=== PATIENT | female | born 2005 | race Caucasian/White ===

== ENCOUNTER 2025-03-12 10:01 | Outpatient (AMB) | payer OTHER, SELFPAY ==
--- NOTE | 2025-03-12 10:09 | A.OFFPC_ITS ---
Vital Signs 03/12/25 10:12 Height 5 ft 3.94 in Weight 121 lb 6 oz BMI 20.9 BP 104/64 Blood Pressure Location Rt brachial Position Sitting Respiration 12 Pulse 71 Pulse Source Pulse Oximeter Temp 98.2 F Temp Source Oral Pulse Oximetry (%) 99 Oxygen Delivery Method Room Air Intake Visit Reasons: New PT Intake Note: New patient visit Bsa/Aml Compliance Officer Required: No Allergies No Known Allergies Allergy (Verified 03/12/25 10:10) Tobacco use date assessed: 03/12/25 Dental Screening Dental Screen Date: 03/12/25 Did you have a dental visit in the last 12 months?: Yes Did you have a dental problem in the last 6 months where you did not have access to dental care?: No Was dental information given to patient?: Patient has dentist HPI HPI Comments History of Present Illness Details The patient is a 19 year old female with a past medical history of peanut allergy presenting to [facility] care/CPE Yawns often, cold intolerance. Sleeps okay. Some fatigue. History of peanut allergy. Has epipen. In [employer] for [employer]. Has always dealt with issues concentrating. Brought up to electric shovel operator at one point -the referral fell through. Not inte rested in medications at this time Menses are normal. Came off ocp a few months ago. Is sexually active. Uses condoms. [facility]. Needs pap Dental UTD Tdap today ROS see HPI PHYSICAL EXAM: GENERAL: Alert and oriented x 3. NAD EYES: EOMI. Anicteric. HENT: Moist mucous membranes. No scleral icterus. No cervical lymphadenopathy. LUNGS: Clear to auscultation bilaterally. CARDIOVASCULAR: Regular rate and rhythm. No murmur. No JVD. ABDOMEN: Soft, non-tender +bs EXTREMITIES: No edema. Non-tender. SKIN: No rashes or lesions. Warm. NEUROLOGIC: No focal neurological deficits. CN II-XII grossly intact PSYCHIATRIC: Cooperative. Appropriate mood and affect [facility] H/O wisdom tooth extraction Family History Other FH: mental illness Social History Housing: House (when in school) Housing Other:: Apartment also when in school Patient Tobacco Use Status: Never used Tobacco e-Cigarette/Vaping Use: Never Used Second Hand Smoke Exposure: No Substance Use Type: Marijuana service: No Current occupational status: student Cognitive needs: No Hearing needs: No Vision needs: No Questionnaire PHQ-9 Over the last 2 weeks, how often have you been bothered by any of the following problems? 1. Little interest or pleasure in doing things: not at all 2. Feeling down, depressed, or hopeless: not at all 3. Trouble falling or staying asleep, or sleeping too much: not at all 4. Feeling tired or having little energy: nearly every day 5. Poor appetite or overeating: not at all 6. Feeling bad about yourself - or that you are a failure or have let yourself or your family down: not at all 7. Trouble concentrating on things, such as reading the newspaper or watching television: more than half the days 8. Moving or speaking so slowly that other people could have noticed. Or the opposite - being so fidgety or restless that you have been moving around a lot more than usual: not at all 9. Thoughts that you would be better off or of hurting yourself in some way: not at all Total score: 5 Depression Screening Interpretation: Positive (referred for ADD evaluation. Labs ordered. Denies depression) Depression Screening Follow-up: Other Depression Screening Done: Yes 08309 - PHQ-9 Billing: Yes Source: Developed by Drs. Allan Medel, Amanda Platt, Soy Lora and colleagues, with an educational beatriz from [employer]. Thrive Questionnaire Date Thrive assessed: 03/12/25 I am a: Patient What is your living situation today?: I have a steady place to live Within the past 12 months, did the food you bought not last and you didn't have the money to get more?: Never true Within the past 12 months, did you worry whether your food would run out before you got money to buy more?: Never true Do you have trouble paying for medicines?: No Do you have trouble getting transportation to medical appointments?: No Do you have trouble paying your heating and electricity bill?: No Do you have trouble taking care of your child, family member or friend?: No Do you have trouble with day-to-day activities such as bathing, preparing meals, shopping, managing finances, etc.?: No Are you currently unemployed and looking for a job?: No Are you interested in more education?: No Please select the resources that you would like help with: None Currently or been in a relationship where the following occur: No concerns reported THRIVE Score: 0 AUDIT C Alcohol Use Questionnaire (AUDIT-C) 1. How often do you have a drink containing alcohol?: 2-4 times a month 2. How many drinks containing alcohol do you have on a typical day when you are drinking?: 1 or 2 3. How often do you have six or more drinks on one occasion?: Never Total Score: 2 DANTE-7 AMB Questionnaire DANTE-7 Date DANTE - 7 assessed: 03/12/25 Feeling nervous, anxious, or on edge: 2 = More than half the days Not being able to stop or control worryin = Not at all Worrying too much about different things: 0 = Not at all Trouble relaxin = Several days Being so restless that it is hard to sit still: 0 = Not at all Becoming easily annoyed or irritable: 1 = Several days Feeling afraid as if something awful might happen: 0 = Not at all Total DANTE-7 score (0-4 normal; 5-9 mild; 10-14 moderate; 15-21 severe): 4 Source: Developed by Drs. Allan Medel, Amanda Platt, Soy Lora and colleagues, with an educational beatriz from [employer]. DANTE-7 Assessment Billing DANTE-7 Assessment Tool: DANTE-7 Assessment 89509 ACT Questionnaire In the past 4 weeks, how much of the time did your asthma keep you from getting as much done at work, school or at home?: None of the time During the past 4 weeks, how often did your asthma symptoms wake you up at night or earlier than usual in the morning?: Not at all During the past 4 weeks, how often have you had to use your rescue inhaler or nebulizer medication?: Not at all How would you rate your asthma control during the past 4 weeks?: Completely controlled ACT Interpretation: Negative Score: 20 Physical exam (Primary Care) Vital Signs: Last Vital Signs Temp 98.2 F 03/12/25 10:12 Pulse 71 03/12/25 10:12 Resp 12 03/12/25 10:12 BP 104/64 03/12/25 10:12 Pulse Ox 99 03/12/25 10:12 Oxygen Delivery Method Room Air 03/12/25 10:12 BMI result Body Mass Index 20.9 Tobacco/Smoking Status: Tobacco use Status Tobacco use date assessed 03/12/25 03/12/25 10:14 Patient Tobacco Use Status Never used Tobacco 03/12/25 10:14 e-Cigarette/Vaping Use Never Used 03/12/25 10:14 Depression Screening Interpretation: Positive (referred for ADD evaluation. Labs ordered. Denies depression) Depression Screening Follow-up: Other Thrive Assessment: Date of Thrive Assessment Date Thrive assessed 03/12/25 03/12/25 10:24 Currently or been in a relationship where the following occur: No concerns reported Office Procedures Flu Questionnaire Does the patient have a severe egg allergy?: No Does the patient have severe life threatening allergies?: No Does the patient have a fever or illness today?: No Has the patient ever had Guillain-[place] Syndrome?: No Has the patient ever had any past reaction to a flu shot?: No Immunizations Fluarix [id number] (PF) 45 mcg (15 mcg x 3)/0.5 mL IM syringe Performing Provider: Sharona Horne MD Performing Location: [facility] Administered by: Shi Chase CMA on 03/12/25 10:50 Dose Route Admin Location Dispensed Lot Number Expiration Date [facility] Lap Cutter Truer Operator 0.5 mL IM Right Deltoid 0.5 mL [id number] 10/26/25 21777-077-90 [facility] Given Date VIS Provided VIS Publication Date 03/12/25 Single Vaccine 24 Eligibility Eligibility Date Funding Source Not C Eligible 03/12/25 Private Boostrix Tdap 2.5 Lf unit-8 mcg-5 Lf/0.5 mL intramuscular syringe Performing Provider: Sharona Horne MD Performing Location: [facility] Administered by: Shi Chase CMA on 03/12/25 10:50 Dose Route Admin Location Dispensed Lot Number Expiration Date [facility] Lap Cutter Truer Operator 0.5 mL IM Left Deltoid 0.5 mL [id number] 03/26/27 96283-514-41 [employer] Total Dispensed Waste 0.5 mL 0 % VIS Given Date VIS Provided VIS Publication Date 03/12/25 Single Vaccine 20 Eligibility Eligibility Date Funding Source Not [facility] Eligible 03/12/25 Private Coding Level of Care Code New Pt Prev Care 18-39yr(76854 Diagnoses Physical exam Z00.00 Fatigue, unspecified type R53.83 Fatigue type: unspecified Cold intolerance R68.89 Attention deficit R41.840 Additional Codes Asthma Control Questionnaire - ACT Interpretation: Negative ([id number]) DANTE-7 Assessment Billing - DANTE-7 Assessment Tool: DANTE-7 Assessment 05669 ([id number]) PHQ-9 - 11450 - PHQ-9 Billing: Yes ([id number]) Assessment & Plan Assessment & Plan (1) Physical exam: Code(s): Z00.00 - Encounter for general adult medical examination without abnormal findings (2) Fatigue: Code(s): R53.83 - Other fatigue Category: Medical Qualifiers: Fatigue type: unspecified Qualified Code(s): R53.83 - Other fatigue (3) Cold intolerance: Code(s): R68.89 - Other general symptoms and signs Category: Medical (4) Attention deficit: Code(s): R41.840 - Attention and concentration deficit Category: Medical Plan 19 year old female presenting for cpe/establish past medical, surgical, social reviewed Preventive measures for age discussed Fatigue, cold intolerance-labs ordered Attention deficit. Referral placed Notes epipen is in date Orders: Orders Complete Blood Count Auto Diff Today R53.83 - Other fatigue, R68.89 - Other general symptoms and signs, Z13.0 - Encounter for screening for diseases of the blood and blood-forming organs and certain disorders involving the immune mechanism, Z13.220 - Encounter for screening for lipoid disorders, Z13.228 - Encounter for screening for other metabolic disorders Lyme IgG/IgM w/reflex to WB Today R53.83 - Other fatigue, R68.89 - Other general symptoms and signs, Z13.0 - Encounter for screening for diseases of the blood and blood-forming organs and certain disorders involving the immune mechanism, Z13.220 - Encounter for screening for lipoid disorders, Z13.228 - Encounter for screening for other metabolic disorders Comprehensive Met. Panel Today R53.83 - Other fatigue, R68.89 - Other general symptoms and signs, Z13.0 - Encounter for screening for diseases of the blood and blood-forming organs and certain disorders involving the immune mechanism, Z13.220 - Encounter for screening for lipoid disorders, Z13.228 - Encounter for screening for other metabolic disorders Lipid Panel Today R53.83 - Other fatigue, R68.89 - Other general symptoms and signs, Z13.0 - Encounter for screening for diseases of the blood and blood- forming organs and certain disorders involving the immune mechanism, Z13.220 - Encounter for screening for lipoid disorders, Z13.228 - Encounter for screening for other metabolic disorders TSH reflex Free T4 Today R53.83 - Other fatigue, R68.89 - Other general symptoms and signs, Z13.0 - Encounter for screening for diseases of the blood and blood-forming organs and certain disorders involving the immune mechanism, Z13.220 - Encounter for screening for lipoid disorders, Z13.228 - Encounter for screening for other metabolic disorders Vitamin B12 and Folate Today R53.83 - Other fatigue, R68.89 - Other general symptoms and signs, Z13.0 - Encounter for screening for diseases of the blood and blood-forming organs and certain disorders involving the immune mechanism, Z13.220 - Encounter for screening for lipoid disorders, Z13.228 - Encounter for screening for other metabolic disorders IRON PROFILE Today R53.83 - Other fatigue, R68.89 - Other general symptoms and signs, Z13.0 - Encounter for screening for diseases of the blood and blood- forming organs and certain disorders involving the immune mechanism, Z13.220 - Encounter for screening for lipoid disorders, Z13.228 - Encounter for screening for other metabolic disorders Influenza [id number] Immunization Today Z23 - Encounter for immunization TDaP Immunization Today Z23 - Encounter for immunization Referrals Neuropsychiatry Referral R41.840 - Attention and concentration deficit STRAIGHTENER Referral Z12.4 - Encounter for screening for malignant neoplasm of cervix
[2025-03-12 10:12] VITALS: BP 104/64; PULSE 71; RESP 12; TEMP 36.8; O2SAT 99; BMI 20.9
--- OUTSIDE RECORDS SUMMARY | 2025-03-12 11:52 | XMS_ITS | Clinical Summary ---
Author Organization [facility] [address] [facility] Address [address] [place] [address] Phone Care Team Providers Care Afloat Cryptologic Manager Name Role Phone Physician, No Pcp Primary Care Provider Unavaila ble Medications desogestreL-ethi nyl estradioL (Isibloom) 0.15-0.03 mg per tablet Take 1 tablet by mouth 1 (one) time each day. 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 Chest pain of uncertain etiology 12/03/2016 DX:Chest pain of uncertain etiology; COMMENT: 01/26/19: seen by pedi cardiology, chest pain musculoskeletal in nature. No f/u needed. Family History Medical History Relation Name Comments Depression Aunt Other: uveitis Brother followed in [place] Basal cell carcinoma Father nose .. .. Patient unsure of specifics but her description suggests Heart attack Maternal Grandfather at age 52 Hyperlipidemia Maternal Grandfather Hypertension Maternal Grandfather Depression Maternal Grandmother Arthritis Mother Relation Name Status Comments Aunt Brother Father Alive 1969 Maternal Grandfather Maternal Grandmother Mother Alive 1975 Social History Tobacco Use Types Packs/Day Years Used Date Smoking Tobacco: Never Smokeless Tobacco: Never Alcohol Use Standard Drinks/Week Comments No 0 (1 standard drink = 0.6 oz pur e alcohol) Comments Unknown Sex and Gender Information Value Date Recorded Sex Assigned at Not on file Legal Sex Female 10:14 AM EST Gender Identity Not on file Sexual Orientation Not on file Obstetrics History Last Filed Vital Signs Vital Sign Reading Time Taken Comments Blood Pressure 114/76 06/06/2022 3:54 PM EST Pulse - - Temperature - - Respiratory Rate - - Oxygen Saturation - - Inhaled Oxygen Concentration - - Weight 59.1 kg (130 lb 3.2 oz) 09/04/2022 11:21 AM EDT Height 164.5 cm (5' 4.75 ) 09/04/2022 11:21 AM E DT Body Mass Index 21.83 09/04/2022 11:21 AM EDT Plan of Treatment Health Maintenance Due Date Last Done Comments Gonorrhea/Chlamydia Screening 2003 Meningococcal B Vaccine (1 of 2 - Standard) 2019 Annual Well Child Visit (3-21 years old) 04/01/2022 12/30/2020, 12/17/2019, 12/15/2018, Additional history exists HIV Screening 04/01/2022 Hepatitis C Screening 04/01/2022 Social Influencers of Health Screening 04/01/2022 Depression Screening 04/29/2024 Cervical Cancer Screening: Pap Smear 2024 COVID-19 Vaccine ( season) 2024 09/21/2020, 08/30/2020 Influenza Vaccine (#1) 2024 , 02/20/2019, 02/21/2018, Additional history exists DTaP,Tdap,and Td Vaccines (7 - Td or Tdap) 12/31/2024 12/31/2014, 07/14/2008, 12/25/2004, Additional history exists RSV Immunization Adult Patients (1 - 1-dose 75+ series) 2078 Hepatitis B Vaccines Completed 2003, 2003, 2003, Additional history exists Pneumococcal Vaccine: Pediatrics (0 to 5 Years) and At-Risk Patients (6 to 49 Years) Completed 06/19/2004, 2003, 2003 HIB Vaccines Completed 09/18/2004, 11/28, 2003, Additional history exists IPV Vaccines Completed 07/14/2008, 08/28, 2003, Additional history exists MMR Vaccines Completed 07/14/2008, 09/18/2004 Varicella Vaccines Completed 07/14/2008, 06/19/2004 HPV Vaccines Completed 05/23/2016, 12/29, 11/16/2015 Meningococcal ACWY Vaccine Completed 12/17/2019, Hepatitis A Vaccines Aged Out No long er eligible based on patient's age to complete this topic RSV Immunization Patients Under 20 months Aged Out No longer eligible based on patient's age to complete this topic Insurance [facility] Care Teams Afloat Cryptologic Manager Relationship Specialty Start Date End Date Physician, No Pcp PCP - General 12/07/24
--- OUTSIDE RECORDS SUMMARY | 2025-03-12 11:53 | XMS_ITS | Data Portability ---
Author Organization [facility], svmg_admin Address [address] [place] [id number] Assessment Encounter Date Assessment Date Assessment LastModified by Organization Details LastModified Time 01/29/2023 01/29/2023 I spent more oliverio n 30 minutes in direct face to face time with the patient and non face to face time. This includes time spent in ordering labs, medications, referrals, any communications with other providers, documentation, interpretation of test results, counseling and coordination of care. [email or web address] Not available 02/02/2023 20:43:27 Plan of Treatment Reminders Order Date Submit Date Provider Last Modified By Organization Details Last Modified Time Details Appointments None record ed. Lab None record ed. Referral None record ed. Procedures None record ed. Surgeries None record ed. Imaging None record ed. Medication Orders None record ed. Patient TargetsNo targets recorded. Patient InstructionsNo instructions recorded. Reason for Referral None Reported. Problems No Known Problems Medical Equipment None Reported. Allergies Allergen ID Allergen Name Allergen Category Reaction Reaction Severity Criticality Documentation Date Start Date Code Code System Note Provider Name and Address Organization Details Recorded Time [id number] peanut allergeni c extract food,medi cation anaphylax is Not available Not available 01/29/2023 09136 8 RxNorm Colby araujo [facility] 14:57:52 Medications Name Sig Start Date Stop Date Status Note LastModified by Organization Details LastModified Time fluconazole 150 mg tablet TAKE 1 TABLET BY MOUTH ONCE A DAY FOR 3 DAYS 01/29 completed Not Available Not Available Not Available lidocaine 4 % topical cream APPLY A SMALL AMOUNT TOPICALLY TO THE AFFECTED AREA 1-2 TIMES DAILY FOR 7 DAYS NEEDED. 01/29 completed Not Available Not Available Not Available phenazopyri dine 100 mg tablet TAKE 1 TABLET BY MOUTH THREE TIMES DAILY FOR UP TO 7 DAYS NEEDED FOR PAIN 01/29 completed Not Available Not Available Not Available epinephrine 0.3 mg/0.3 mL injection, auto-inject or INJECT 0.3ML INTO THE MUSCLE NEEDED FOR ANANPHYLA XIS active Not Available Not Available No t Available nitrofurant oin monohydrate /macrocryst als 100 mg capsule TAKE 1 CAPSULE BY MOUTH TWICE A DAY FOR 5 DAYS 01/29 completed Not Available Not Available Not Available Isibloom 0.15 mg-0.03 mg tablet TAKE 1 TABLET BY MOUTH DAILY active Not Available Not Available No t Available Vitals Date Recorded Body height Body mass index (BMI) Body mass index (BMI) [Percentile] Per age and sex Body weight Body temperature Heart rate Oxygen saturation Oxygen saturation in Arterial blood by Pulse oximetry Systolic And Diastolic Provider Name and Address Organization Details Last Updated DateTime 162.56 cm 20.8 kg/m2 39 % 57066.7 8 g 98.2 [degF] 80 /min 98 % 98 % 112/79 mm[Hg] Colby Kelly [facility] 14:57:28 Social History Question Answer Notes LastModified by Cittadino Details LastModified Time Tobacco Smoking Status Never Smoker Deysi araujo [facility] 01/29/2023 15:00:45 If Pulse Oximetry Was Done: Is The Patient's Sp02 Less Than 93% On Room Air? No Information not available 01/29/2023 What Was The Date Of Your Most Recent Tobacco Screening? 01/29/2023 [email or web address] Information not available 01/29/2023 Have You Ever Been Counseled For Unhealthy Alcohol Use? No [email or web address] Information not available 01/29/2023 Has Tobacco Cessation Counseling Been Provided? No Information not available 01/29/2023 Sex: Unknown Functional Status Question Answer Note LastModified by Cittadino Details LastModified Time Do you or have you ever used any other forms of tobacco or nicotine? No [email or web address] Information not available 01/29/2023 What is your level of alcohol consumption? Occasional [email or web address] Information not available 01/29/2023 Mental Status None recorded. Family History Nothing Reported Notes:heart attack- moms fat her. Medical History No medical history recorded. Gynecological History Statement/Question Response History of Endometriosis N Flow Moderate Date of LMP 01/22/2023 Date of last mammogram n/a Total # of Births 0 History of polycystic ovarian disease N Date of last pap n/a History of infertility N Duration of Flow (days) 5 Age at Menarche 11 Current Control Method BCPs Sexually Active? Y Menses Monthly Y Number of Pregnancies? 0 LMP Approximate Obstetrics History GPAL:G 0 P 0 0 0 0 Past Encounters Encounter ID Performer Location Encounter Start Date Encounter Closed Date Diagnosis/Indication Diagnosis SNOMED-CT Code Diagnosis ICD10 Code Diagnosis IMO Codes Diagnosis Note [id number] Rabia Oro MD [facility] [address] [place] [phone] 01/29/2023 14:46:02 01/29/2023 15:47:26 Discomfort of vulva 29840517 R10.2 Patient educated on vulvar hygiene.Re commended considerin g vaginal boric acid.Recom mended avoiding any irritants. If all fails, recommende d waterworks douching very sparingly. To call with any acute symptoms. Health Concerns Section Related Observation LastModified by Organization Detai ls LastModified Time None Recorded Concern Status LastModified by Organization Details LastModified Time None Recorded Advance Directives Directive None Recorded Payers Insurance Date Sequence Insurance Name Policy Number Policy Mason Covered Member ID Mason Member ID Guarantor Name 02/04/2023 1 [facility] Filement [facility] [id number] Eliceo Corea [id number] Eliceo Corea Notes Date Note Type Note Provider Name and Address Organization Details Recorded Time 01/29/2023 text/html Eliceo presents today for complaints of recurrent urinary symptoms and vulvar discomfort. Patient reports that she was seen at urgent care center twice in the past few months and was treated with antibiotics both times. She shows results of her urine culture on her cell phone the last culture which did not show any signs of infections. She reports that she generally experiences significant vulvar discomfort especially with sexual activity. Reports the lidocaine helps occasionally. She also reports having frequent urination without any documented UTIs. She currently Azo-Pyridium. Reports this helps her with discomfort. Denies any abnormal vaginal discharge.Reports having recent negative STD testing. Rabia Oro MD [address] [place] [address], [phone], [facility] - [facility] Physician Services [facility]. 02/02/2023 20:43:40 OBGyn Episode No OBEpisode recorded.
== END 2025-03-12 10:53 | disposition home or self-care (01) ==
PROVIDERS: PCP Internal Medicine; Visit Provider Internal Medicine
DX: Z00.00 Encounter for general adult medical examination without abnormal findings (principal); R53.83 Other fatigue; R68.89 Other general symptoms and signs; R41.840 Attention and concentration deficit; Z23 Encounter for immunization

== ENCOUNTER 2025-03-12 10:01 | Outpatient (REF) | payer OTHER, SELFPAY ==
[2025-03-12 14:10] LABS: MANUAL DIFF FLAG NO
[2025-03-12 14:22] LABS: Hematocrit 41.7 % (37.0-47.0); Hemoglobin 13.9 g/dl (12.0-16.0); Imm Gran Abs Auto 0.00 X10*3/uL (0.00-0.03); Imm Gran Pct Auto 0.0 % (0.0-0.4); Lymphocytes Absolute Auto 1.9 X10*3/uL (1.2-4.9); Mean Corpuscular HGB Conc 33.3 g/dl (31.0-35.0); Mean Corpuscular Hemoglobin 30.4 pg (27.0-33.0); Mean Corpuscular Volume 91.2 fL (80.0-98.0); NRBC Abs Auto 0.000 X10*3/uL (0.0-0.012); NRBC Pct Auto 0.0 /100WBC (0.0-0.2); Platelet Count 258 X10*3/uL (160-400); Red Blood Count 4.57 X10*6/uL (4.20-5.50); White Blood Count 3.8 X10*3/uL (4.8-10.8)
[2025-03-12 14:49] LABS: Alanine Aminotransferase 58 U/L (0-31); Albumin Level 4.8 g/dL (3.5-5.0); Alkaline Phosphatase 41 U/L (39-117); Anion Gap 10 (12-20); Aspartate Amino Transferase 31 U/L (5-31); Blood Urea Nitrogen 12 mg/dL (9-16); Calcium 9.6 mg/dL (8.4-10.2); Carbon Dioxide 28 mmol/L (22-29); Chloride 107 mmol/L (96-108); Cholesterol 220 mg/dL (<200); Estimated Glomerular Filt Rate > 60; HDL Cholesterol 73 mg/dL (>40); Iron 90 mcg/dL (30-160); Percent Iron Saturation 31 % (15-50); Potassium 3.9 mmol/L (3.3-5.1); Sodium 141 mmol/L (135-145); Total Iron Binding Capacity 291 mcg/dL (228-428); Total Protein 7.1 g/dL (6.5-8.0); Triglycerides 46 mg/dL (<150); Unsaturated Iron Binding 201 ug/dL
[2025-03-12 15:19] LABS: Folate 10.6 ng/mL (> or = 4.0); Vitamin B12 493 pg/mL (200-900)
[2025-03-13 06:28] LABS: Lyme Abs Screen <0.90 index
== END 2025-03-12 10:02 | disposition home or self-care (01) ==
LOC: HO.WFDLDS 10:01
PROVIDERS: PCP Internal Medicine; Visit Provider Internal Medicine
DX: Z00.00 Encounter for general adult medical examination without abnormal findings (principal); R41.840 Attention and concentration deficit; R53.83 Other fatigue; R68.89 Other general symptoms and signs; Z13.0 Encounter for screening for diseases of the blood and blood-forming organs and certain disorders involving the immune mechanism; Z13.220 Encounter for screening for lipoid disorders; Z13.228 Encounter for screening for other metabolic disorders; Z23 Encounter for immunization
CPT/HCPCS: 36415; 80053; 80061; 82607; 82746; 83540; 84443; 85025; 86617; 86618; 90471; 90472; 90656; 90715; 96127; 96160

== ENCOUNTER 2025-04-14 11:09 | Outpatient (REF) | payer OTHER, SELFPAY ==
--- OUTSIDE RECORDS SUMMARY | 2025-04-14 14:50 | XMS_ITS | Clinical Summary ---
Author Organization [facility] [address] [facility] Address [address] [place] [address] Phone Care Team Providers Care Boss Miner Name Role Phone Physician, No Pcp Primary Care Provider Unavaila ble Medications desogestreL-ethi nyl estradioL (Isibloom) 0.15-0.03 mg per tablet Take 1 tablet by mouth 1 (one) time each day. 28 tablet 05/11/2024 Active Medical History Medical History Date Comments Pes planus of both feet 02/13/2016 DX:Pes p lanus of both feet; COMMENT: Seen at [facility] Tourette syndrome 12/14/2013 DX:Tourette sy ndrome; [...] on file Sexual Orientation Not on file Last Filed Vital Signs Vital Sign Reading [...] patient's age to complete this topic Insurance [facility] Care Teams Boss Miner Relationship Specialty Start Date End Date Physician, No Pcp PCP - General 12/07/24
[2025-04-14 15:30] LABS: MANUAL DIFF FLAG NO
[2025-04-14 15:35] LABS: Hematocrit 41.2 % (37.0-47.0); Hemoglobin 13.6 g/dl (12.0-16.0); Imm Gran Abs Auto 0.00 X10*3/uL (0.00-0.03); Imm Gran Pct Auto 0.0 % (0.0-0.4); Lymphocytes Absolute Auto 2.1 X10*3/uL (1.2-4.9); Mean Corpuscular HGB Conc 33.0 g/dl (31.0-35.0); Mean Corpuscular Hemoglobin 30.4 pg (27.0-33.0); Mean Corpuscular Volume 92.0 fL (80.0-98.0); NRBC Abs Auto 0.000 X10*3/uL (0.0-0.012); NRBC Pct Auto 0.0 /100WBC (0.0-0.2); Platelet Count 249 X10*3/uL (160-400); Red Blood Count 4.48 X10*6/uL (4.20-5.50); White Blood Count 4.0 X10*3/uL (4.8-10.8)
== END 2025-04-14 11:10 | disposition home or self-care (01) ==
LOC: HO.WFDLDS 11:09
PROVIDERS: Visit Provider Internal Medicine
DX: R79.89 Other specified abnormal findings of blood chemistry (principal)
CPT/HCPCS: 85025